=== PATIENT | female | born 1985 ===

== ENCOUNTER 2017-12-10 08:00 | Inpatient (IN) | payer OTHER ==
[~2017-12-10] VITALS: Ht 167.6 cm; Wt 86.2 kg
[2017-12-23] MEDS ORDERED: FOLIC ACID0.4 MG PO (10:15)
[2017-12-23] MEDS ORDERED: PRENATAL FORMU1 EAC1 PO (10:15)
[2017-12-23] MEDS ORDERED: IRON325 MG PO (10:16)
[2017-12-23] MEDS ORDERED: LOVENOX40 MG/0.4 SUBCUTANEO (10:17)
== END 2017-12-25 14:34 | DRG 807 ==
LOC: LDR 12-23 09:23 → SURG-SUITE 12-23 14:09 → OB/GYN 12-28 08:00
PROC: 10E0XZZ Delivery of Products of Conception, External Approach (ICD-10-PCS; principal; 2017-12-23)
PROC: 0KQM0ZZ Repair Perineum Muscle, Open Approach (ICD-10-PCS; 2017-12-23)
PROC: 10907ZC Drainage of Amniotic Fluid, Therapeutic from Products of Conception, Via Natural or Artificial Opening (ICD-10-PCS; 2017-12-23)
PROC: 3E033VJ Introduction of Other Hormone into Peripheral Vein, Percutaneous Approach (ICD-10-PCS; 2017-12-23)
PROC: 4A1HXCZ Monitoring of Products of Conception, Cardiac Rate, External Approach (ICD-10-PCS; 2017-12-23)
DX: O70.1 Second degree perineal laceration during delivery (principal); Z37.0 Single live birth; Z3A.38 38 weeks gestation of pregnancy; Z22.330 Carrier of Group B streptococcus